=== PATIENT | female | born 1940 | race Caucasian/White ===

== ENCOUNTER 2016-12-09 20:10 | Emergency (ER) | payer MEDICARE, BC ==
--- NOTE | ~2016-12-09 | CR93 ---
[facility] A Service of [facility] RADIOLOGY TEXT RESULTS PATIENT: YEAL NGUYEN LOCATION: [facility] : 39 UNIT #: [id number] AGE: [address]: Jet Louise MD SEX: F ORDER DR: [id number] [facility] [address] [place], [place] [address] [id number] E MR#: [id number] Acc #: [id number] NAME: YAEL NGUYEN : 1940 SEX: F STUDY DATE/TIME: 12/09/2016 18:07 UNIT: [facility] ROOM: STUDY DESCRIPTION: CR Elbow Min 3 Views Lt Attending Physician: Jet Louise M.D. Ordering Physician: Ed Doctor [id number] [facility] Primary Care Physician: Primary Care Physician No MEDICAL IMAGING REPORT This report is preliminary unless electronic signature is present EXAM Left elbow HISTORY Pain in shoulder and ankle, laceration on head. Pain left hip. Fall today. FINDINGS AP, lateral and oblique radiographs of the left elbow are presented. Comparison 03/04/2016. Status post open reduction and internal fixation distal humerus with lateral and medial fixation plates and multiple fixation screws. Orthopedic hardware intact without evidence of loosening or failure. Faint visualization of a supracondylar fracture plane. No acute appearing traumatic fracture. No joint malalignment. No effusion. Chronic radiodensities in the subcutaneous soft tissues of the olecranon region may reflect remote trauma or the sequelae of operative intervention. There is no clearly acute soft tissue abnormality. Dictated by... David Lerma M.D. THIS IS AN ELECTRONICALLY VERIFIED REPORT David Lerma M.D. at 12/12/2016 4:25 PM Wilbur TD: 12/10/2016 12:59 JOB #: [id number] MEDICAL IMAGING REPORT COPY
--- NOTE | ~2016-12-09 | CR229 ---
[facility] A Service of [facility] RADIOLOGY TEXT RESULTS PATIENT: YAEL NGUYEN LOCATION: [facility] : 39 UNIT #: [id number] AGE: [address]: Jet Louise MD SEX: F ORDER DR: [id number] [facility] [address] [place], [place] [address] [id number] E MR#: [id number] Acc #: [id number] NAME: YAEL NGUYEN : 1940 SEX: F STUDY DATE/TIME: 12/09/2016 18:07 UNIT: [facility] ROOM: STUDY DESCRIPTION: CR Shoulder Min 2 View Lt Attending Physician: Jet Louise M.D. Ordering Physician: Ed Frank Menchaca M.D. Primary Care Physician: No Primary Care Physician MEDICAL IMAGING REPORT This report is preliminary unless electronic signature is present EXAM Left shoulder series, 12/09/2016. HISTORY Trauma, status post fall. Pain. FINDINGS AP internal and external rotation views of the left shoulder presented with transscapular view. The bony structures show generalized bony demineralization. No traumatic fracture or malalignment. Acromioclavicular and glenohumeral joint relationships normal. The visualized ribs are intact. Mild thoracic spine scoliosis. Visualized pulmonary parenchyma clear. Subcarinal calcified lymph nodes. Periarticular soft tissues show clothing artifact, but no acute traumatic appearing abnormality. Dictated by... David Lerma M.D. THIS IS AN ELECTRONICALLY VERIFIED REPORT David Lerma M.D. at 12/10/2016 8:22 PM Casey TD: 12/10/2016 13:06 JOB #: [id number] MEDICAL IMAGING REPORT COPY
--- NOTE | ~2016-12-09 | CR20 ---
[facility] A Service of [facility] RADIOLOGY TEXT RESULTS PATIENT: YAEL NGUYEN LOCATION: [facility] : 39 UNIT #: [id number] AGE: [address]: Jet Louise MD SEX: F ORDER DR: [id number] [facility] [address] [place], [place] [address] [id number] E MR#: [id number] Acc #: [id number] NAME: YAEL NGUYEN : 1940 SEX: F STUDY DATE/TIME: 12/09/2016 18:07 UNIT: [facility] ROOM: STUDY DESCRIPTION: CR Ankle Min 3 Views Lt Attending Physician: Jet Louise M.D. Ordering Physician: Ed Frank Menchaca M.D. Primary Care Physician: No Primary Care Physician MEDICAL IMAGING REPORT This report is preliminary unless electronic signature is present EXAM Left ankle. INDICATIONS Left ankle pain after fall today. FINDINGS AP, lateral, and oblique projections of the ankle show satisfactory integrity of the joint mortise with a smooth articular surface. There is no identifiable fracture, dislocation, or radiopaque foreign body. IMPRESSION Normal ankle. Dictated by... Julio C Nguyen M.D. THIS IS AN ELECTRONICALLY VERIFIED REPORT Julio C Nguyen M.D. at 12/10/2016 4:32 PM FEL/dina TD: 12/10/2016 12:35 JOB #: [id number] MEDICAL IMAGING REPORT COPY
--- NOTE | ~2016-12-09 | CR150 ---
[facility] A Service of [facility] RADIOLOGY TEXT RESULTS PATIENT: YAEL NGUYEN LOCATION: [facility] : 39 UNIT #: [id number] AGE: [address]: Jet Louise MD SEX: F ORDER DR: [id number] [facility] [address] [place], [place] [address] [id number] E MR#: [id number] Acc #: [id number] NAME: YAEL NGUYEN : 1940 SEX: F STUDY DATE/TIME: 12/09/2016 18:07 UNIT: [facility] ROOM: STUDY DESCRIPTION: CR Hip Min 2 Views Lt Attending Physician: Jet Louise M.D. Ordering Physician: Ed Frank Menchaca M.D. Primary Care Physician: No Primary Care Physician MEDICAL IMAGING REPORT This report is preliminary unless electronic signature is present EXAM Left hip series HISTORY Trauma. Pain in left hip. Fell today. FINDINGS AP radiograph of the pelvis is presented with frog-leg and true lateral views of the left femur. Degenerative change lower lumbar spine. The bony ring of pelvis is intact. Sacroiliac joints and sacral arcuate lines intact to their visualized extent. Bowel gas pattern normal. Status post right hip arthroplasty. Visualized orthopedic hardware unremarkable. Status post open-reduction/internal fixation prior left femoral fracture. No fracture plane evident at this time. There is a long intramedullary valarie extending to the distal femur and there is a dynamic fixation screw extending longitudinally through the left femoral head and neck. Orthopedic hardware intact without evidence of failure or loosening. Chronic soft tissue calcifications superolateral aspect of the left hip joint unchanged from CT examination 05/18/2016 and perhaps related to patient's prior trauma. Mild narrowing of the left hip joint. Visualized left femur is intact. No soft tissue defects, subcutaneous air, or nonsurgical radiodense foreign body. Vascular calcifications. Visualized proximal tibia and fibula grossly unremarkable on limited views. Dictated by... David Lerma M.D. THIS IS AN ELECTRONICALLY VERIFIED REPORT David Lerma M.D. at 12/10/2016 8:22 PM SHALONDA/yvette [facility] A Service of [facility] RADIOLOGY TEXT RESULTS PATIENT: YAEL NGUYEN [id number] UNIT #: [id number] AGE: [address]: Jet Louise MD SEX: F ORDER DR: TD: 12/10/2016 13:08 JOB #: [id number] MEDICAL IMAGING REPORT COPY
--- NOTE | ~2016-12-09 | CT71 ---
[facility] A Service of [facility] RADIOLOGY TEXT RESULTS PATIENT: YAEL NGUYEN LOCATION: [facility] : 39 UNIT #: [id number] AGE: [address]: Jet Louise MD SEX: F ORDER DR: [id number] [facility] [address] [place], [place] [address] [id number] E MR#: [id number] Acc #: [id number] NAME: YAEL NGUYEN : 1940 SEX: F STUDY DATE/TIME: 12/09/2016 17:45 UNIT: [facility] ROOM: STUDY DESCRIPTION: CT Head Wo Contrast Attending Physician: Jet Louise M.D. Ordering Physician: Ed Doctor [id number] [facility] Primary Care Physician: Primary Care Physician No MEDICAL IMAGING REPORT This report is preliminary unless electronic signature is present EXAM CT scan of the head without contrast HISTORY Fell down stairs today with persistent headache and trauma to head. COMPARISON 08/03/[address] exam was performed with one or more of the following radiation dose reduction techniques: automatic exposure control, adjustment of mA and/or kV according to patient size, and iterative reconstruction. FINDINGS Unenhanced images were obtained through the brain. There are no chloe or extraaxial fluid collections or hemorrhage. There is no fracture. There is an ovoid area of CSF density measuring 8.0 mm in diameter in the right basal ganglia which is unchanged from the prior study and probably represents a normal anatomy. IMPRESSION No evidence of acute injury. No change from prior study. Dictated by... Julio C Nguyen M.D. THIS IS AN ELECTRONICALLY VERIFIED REPORT Julio C Nguyen M.D. at 12/10/2016 12:33 PM DEMETRI/qing TD: 12/10/2016 11:50 [facility] A Service of [facility] RADIOLOGY TEXT RESULTS PATIENT: YAEL NGUYEN LOCATION: [facility] : 39 UNIT #: [id number] AGE: [address]: Jet Louise MD SEX: F ORDER DR: JOB #: [id number] MEDICAL IMAGING REPORT COPY
--- NOTE | ~2016-12-09 | CT52 ---
[facility] A Service [facility] RADIOLOGY TEXT RESULTS PATIENT: YAEL NGUYEN LOCATION: [facility] : 39 UNIT #: [id number] AGE: [address]: Jet Louise MD SEX: F ORDER DR: [id number] [facility] [address] [place], [place] [address] [id number] E MR#: [id number] Acc #: [id number] NAME: YAEL NGUYEN : 1940 SEX: F STUDY DATE/TIME: 12/09/2016 17:16 UNIT: [facility] ROOM: STUDY DESCRIPTION: CT Cervical Spine Wo Cont Attending Physician: Jet Louise M.D. Ordering Physician: Ed Doctor [id number] [facility] Primary Care Physician: Primary Care Physician No MEDICAL IMAGING REPORT This report is preliminary unless electronic signature is present EXAM CT scan of the cervical spine without contrast HISTORY Fall down stairs today with neck pain. TECHNIQUE Axial 2.0 mm images were obtained through the cervical spine and sagittal and coronal reconstructions were generated. This CT exam was performed with one or more of the following radiation dose reduction techniques: automatic exposure control, adjustment of mA and/or kV according to patient size, and iterative reconstruction. FINDINGS The vertebral bodies have normal alignment. There is no fracture or subluxation. There is mild disc space narrowing and posterior osteophyte formation at C3-4, 4-5 and 5-6. IMPRESSION Mild mid cervical spine degenerative changes, otherwise the study is normal. Dictated by... Julio C Nguyen M.D. THIS IS AN ELECTRONICALLY VERIFIED REPORT Julio C Nguyen M.D. at 12/10/2016 12:33 PM DEMETRI/qing TD: 12/10/2016 11:48 JOB #: [id number] [facility] A Service [facility] RADIOLOGY TEXT RESULTS PATIENT: YAEL NGUYEN LOCATION: [facility] : 39 UNIT #: [id number] AGE: [address]: Jet Louise MD SEX: F ORDER DR: MEDICAL IMAGING REPORT COPY
== END 2016-12-09 20:50 | disposition home or self-care (01) ==
LOC: CED 20:10
DX: S46.912A Strain of unspecified muscle, fascia and tendon at shoulder and upper arm level, left arm, initial encounter (principal); S96.912A Strain of unspecified muscle and tendon at ankle and foot level, left foot, initial encounter; S01.81XA Laceration without foreign body of other part of head, initial encounter; S40.012A Contusion of left shoulder, initial encounter; S70.02XA Contusion of left hip, initial encounter; I10 Essential (primary) hypertension; Z88.1 Allergy status to other antibiotic agents; W19.XXXA Unspecified fall, initial encounter; Y92.89 Other specified places as the place of occurrence of the external cause
CPT/HCPCS: 12011; 70450; 72125; 73030; 73080; 73502; 73610; 99284